=== PATIENT | female | born 1975 | race Caucasian/White ===

== ENCOUNTER 2017-02-12 16:17 | Inpatient (IN) | payer MEDICAID ==
[~2017-02-12] VITALS: Ht 157.5 cm; Wt 88.9 kg
[~2017-02-12 16:17] MED LIST: PREN1TAB49 PO
[2017-02-12 16:43] LABS: URINE BLOOD (Dip) POC 2+ (NEGATIVE)
[2017-02-12 16:58] LABS: ADD SCAN DIFF NO
[2017-02-12 17:00] LABS: BASOPHILS % 0.2 % (0.0-2.0); EOSINOPHILS # 0.2 10^3/ul (0.0-0.5); EOSINOPHILS % 1.4 % (0.0-7.0); HEMOGLOBIN 10.9 g/dl (12.0-16.0); LYMPHOCYTES # 2.3 10^3/ul (0.8-2.9); LYMPHOCYTES % 18.8 % (15.0-51.0); MEAN CORPUSCULAR HEMOGLOBIN 30.4 pg (29.0-33.0); MEAN CORPUSCULAR HGB CONC 34.1 g/dl (32.0-37.0); MEAN CORPUSCULAR VOLUME 89.4 fl (82.0-101.0); MEAN PLATELET VOLUME 10.6 fl (7.4-10.4); MONOCYTE # 1.4 10^3/ul (0.3-0.9); MONOCYTES % 11.2 % (0.0-11.0); NEUTROPHIL # 8.2 10^3/ul (1.6-7.5); NEUTROPHILS % 66.5 % (39.0-77.0); PLATELET COUNT 249 10^3/UL (140-415); RED BLOOD COUNT 3.58 10^6/ul (4.20-5.40); RED CELL DISTRIBUTION WIDTH 14.5 % (11.5-14.5); WHITE BLOOD COUNT 12.3 10^3/ul (4.8-10.8)
[2017-02-12 17:14] LABS: INR 0.88; PROTIME 11.9 Sec (12.2-14.2); PT RATIO 0.9
[2017-02-12 17:15] LABS: PARTIAL THROMBOPLASTIN TIME 28.9 Sec (25.0-35.0)
[2017-02-12 17:17] LABS: ALBUMIN 3.5 g/dl (3.3-4.9); ALBUMIN/GLOBULIN RATIO 1.4; BILIRUBIN,INDIRECT 0.1 mg/dl (0-1.1); BILIRUBIN,TOTAL 0.1 mg/dl (0.2-1.3); CALCIUM 9.6 mg/dl (8.4-10.2); CREATININE 0.83 mg/dl (0.44-1.00); POTASSIUM 4.8 mmol/L (3.5-5.1); URIC ACID 8.8 mg/dl (3.1-7.9)
--- NOTE | 2017-02-12 19:29 | RADRPT ---
PROCEDURE: US OB. CLINICAL INDICATION: Size and dates TECHNIQUE: Multiple sonographic images of the pelvis were obtained. The images were reviewed on a PACS workstation. COMPARISON: No prior studies are available for comparison. FINDINGS: There is a twin viable intrauterine gestation. BABY A Cardiac activity is present with 142 beats per minute. There is a vertex presentation. The placenta is fundal. Measurements were made in order to determine age. The results are as follows: BPD =7.4 cm HC =26.6 cm AC =23.9 cm FL =5.4 cm The EFW = 1239 g. BABY B Cardiac activity is present with 148 beats per minute. There is a vertex presentation. The placenta is anterior. Measurements were made in order to determine age. The results are as follows: BPD =7.3 cm HC =26.1 cm AC =24.8 cm FL =5.6 cm The EFW = 1328 g. Estimated gestational age of approximately 28 weeks and 6 days and 29 weeks and 0 days. RPTAT: AA IMPRESSION: Twin viable intrauterine gestation of approximately 28 weeks and 6 days and 29 weeks and 0 days. .El Matthews MD, MD Date Time Electronically viewed and signed by .El Matthews MD, MD on 02/12/2017 19:29 .S/
--- NOTE | 2017-02-12 19:31 | RADRPT ---
PROCEDURE: US OB biophysical profile. CLINICAL INDICATION: decreased movements TECHNIQUE: Multiple sonographic images of the pelvis were obtained. The images were reviewed on a PACS workstation. COMPARISON: No prior studies are available for comparison. FINDINGS: There is a twin viable intrauterine gestation. There is a normal amount of amniotic fluid with an AKOSUA = 10.6 cm. Twin A Cardiac activity is present with 146 beats per minute. There is a vertex presentation. The placenta is fundal. Biophysical profile: movement 2/2 tone 2/2. breathing 2/2 AKOSUA 2/2 Total 8/8 Twin B Cardiac activity is present with 156 beats per minute. There is a vertex presentation. The placenta is anterior. Biophysical profile: movement 2/2 tone 2/2. breathing 2/2 AKOSUA 2/2 Total 8/8 RPTAT: AA . IMPRESSION: Normal biophysical profile for twin gestation . . .El Matthews MD, MD Date Time Electronically viewed and signed by .El Matthews MD, on 02/12/2017 19:31 .S/
[2017-02-12] MEDS: BETAMET NA PHOS/AC(6 MG/ML) 5ML INJ IM SCH (20:08)
--- NOTE | 2017-02-12 20:48 | HP ---
DATE OF ADMISSION: 02/12/2017 HISTORY OF PRESENT ILLNESS: A 41-year-old female, 3, para 0-1-1-1, estimated date of delivery 05/02/2017, 28+ weeks' gestation was admitted due to elevated blood pressure. PAST SURGICAL HISTORY: Unremarkable. ALLERGIES: NO KNOWN ALLERGIES. FAMILY HISTORY: Noncontributory. COURSE: Significant for twin . PHYSICAL EXAMINATION: VITAL SIGNS: The patient is afebrile. Vital signs stable. HEAD, NECK AND CHEST: Within normal limits. ABDOMEN: Soft, nontender and gravid. EXTREMITIES: Reveals edema. NEUROLOGIC: Within normal limits. HOSPITAL COURSE: Intrauterine at 28+ weeks, rule out preeclampsia. PLAN: Admit, -induced hypertension panel and 24-hour urine collection , intramuscular betamethasone for lung maturity. Perinatology and neonatology consultations. Dictated By: ROZ GIRON/GRZEGORZ Conf#: [id number] DID#: [id number] TREVOR
[2017-02-12] MEDS: AMOXICILLIN 500 MG CAP PO SCH (22:58)
[2017-02-13] MEDS: LACTATED RINGER'S 1,000 ML IV SCH ×5 (01:49→14:40)
[2017-02-13 03:21] VITALS: Ht 157.5 cm; Wt 88.9 kg
[2017-02-13 06:20] LABS: ADD SCAN DIFF NO
[2017-02-13 06:40] LABS: BASOPHILS % 0.1 % (0.0-2.0); EOSINOPHILS % 0.1 % (0.0-7.0); HEMATOCRIT 33.5 % (37.0-47.0); HEMOGLOBIN 10.9 g/dl (12.0-16.0); LYMPHOCYTES # 1.7 10^3/ul (0.8-2.9); LYMPHOCYTES % 12.1 % (15.0-51.0); MEAN CORPUSCULAR HEMOGLOBIN 29.5 pg (29.0-33.0); MEAN CORPUSCULAR HGB CONC 32.5 g/dl (32.0-37.0); MEAN CORPUSCULAR VOLUME 90.8 fl (82.0-101.0); MONOCYTE # 0.4 10^3/ul (0.3-0.9); MONOCYTES % 3.1 % (0.0-11.0); NEUTROPHIL # 11.2 10^3/ul (1.6-7.5); NEUTROPHILS % 81.8 % (39.0-77.0); PLATELET COUNT 225 10^3/UL (140-415); RED BLOOD COUNT 3.69 10^6/ul (4.20-5.40); RED CELL DISTRIBUTION WIDTH 14.5 % (11.5-14.5); WHITE BLOOD COUNT 13.7 10^3/ul (4.8-10.8)
[2017-02-13 07:10] LABS: ALBUMIN 3.1 g/dl (3.3-4.9); ALBUMIN/GLOBULIN RATIO 1.14; BILIRUBIN,INDIRECT 0.2 mg/dl (0-1.1); BILIRUBIN,TOTAL 0.2 mg/dl (0.2-1.3); CALCIUM 8.8 mg/dl (8.4-10.2); CREATININE 0.67 mg/dl (0.44-1.00); POTASSIUM 4.9 mmol/L (3.5-5.1); TOTAL PROTEIN 5.8 g/dl (6.1-8.1); URIC ACID 8.6 mg/dl (3.1-7.9)
[2017-02-13] MEDS: AMOXICILLIN 500 MG CAP PO SCH ×3 (07:14→22:27)
[2017-02-13] MEDS: MULTIVIT/MIN/FOLATE/IRON/PREN TAB PO SCH (09:36)
[2017-02-13] MEDS: DOCUSATE SODIUM 100 MG CAP PO SCH (09:36)
[2017-02-13] MEDS: FERROUS SULFATE (EC) 325 MG TAB PO SCH (09:36)
--- NOTE | 2017-02-13 13:58 | QN ---
Documentation Comment No complaint Afebrile BP 130'-150's/70's-90's Strip Appropriate for GA Await Perinatology consult. ROZ HALL MD Feb 13, 2017 13:58
[2017-02-13 16:35] LABS: COLLECTION PERIOD 24 hrs
--- NOTE | 2017-02-13 17:37 | PERINOTE ---
Date/Time of Note Date/Time of Note DATE: 02/13/17 TIME: 17:32 Assessment/Recommendations Other Assessments labor Hypertension, likely preeclampsia. 24 hour urine collection result is pending Twin Recommendations: Would continue as you are doing with bedrest and betamethasone. If the patient has persistent elevated BPs, could consider labetalol to reduce the risk of severe BPs. If the patient meets criteria for severe preeclampsia due to blood pressure, would plan delivery at 34 weeks, earlier for other severe features, or maternal distress. OB Subjective Free Text/Dictaton Patient referred from Ob office for suspected labor. On admission, found to have hypertension with one severe-range BP, likely preeclampsia. Patient with known trim gestation. No history of preeclampsia with her prior or of chronic hypertension when not . Prior infant delivered at 36 weeks GA after premature rupture of membranes HD# 2 IUP @ 29 weeks Complaints/Overnight events None Current Medications Current Medications Lactated Ringer's (Lr) 1,000 ml @ 125 mls/hr Q8H IV Last administered on 14:40; Admin Dose 125 MLS/HR; Start 02/12/17 at 17:49 Betamethasone Acet/Betameth SodPhos (Celestone Soluspan) 12 mg Q24H IM Last administered on 02/12/17 20:08; Admin Dose 12 MG; Start 02/12/17 at 18:00; Stop 02/13/17 at 18:01 Prenat Multivit/ [place]/Iron/Folic Ac ( S) 1 tab DAILY PO Last administered on 02/13/17 09:36; Admin Dose 1 TAB; Start 02/13/17 at 09:00 Ferrous Sulfate (Ferrous Sulfate (Ec)) 325 mg DAILY PO Last administered on 09:36; Admin Dose 325 MG; Start 02/13/17 at 09:00 Docusate Sodium (Colace) 100 mg DAILY PO Last administered on 02/13/17 09:36; Admin Dose 100 MG; Start 02/13/17 at 09:00 Amoxicillin (Amoxicillin) 500 mg Q8 PO Last administered on 02/13/17 14:15; Admin Dose 500 MG; Start 02/12/17 at 22:00 Past Medical History Medical History: no pertinent history Surgical History: no surgical history SPAGHETTI PRESS HELPER History: no pertinent SPAGHETTI PRESS HELPER history Para: 1 : 3 LMP (Females 10-50): Family History Significant Family History: no pertinent family hx OB Admission Exam Physical Exam Vitals: Current BP 137/84 Max BP since admission: 164/101 Heart: Rhythm Normal Lungs: Clear Abdomen: WNL Extremities: Normal Reflexes: Normal Heart Rate: 130's Accelerations: Accelerations Present Decelerations: Variable Decelerations Varibility: Marked Contractions on Admission: None Last 72 hours Lab Results CBC & BMP 02/12/17 16:30 02/13/17 06:05 Liver Function Test 02/12/17 16:30 02/13/17 06:05 Alanine Aminotransferase (ALT/SGPT) 49 47 Albumin 3.5 3.1 L Alkaline Phosphatase 117 104 Aspartate Amino Transf (AST/SGOT) 32 32 Direct Bilirubin 0.00 0.00 Total Protein 6.0 L 5.8 L ELKE WILLS MD Feb 13, 2017 17:37
[2017-02-13 17:40] LABS: COLLECTION PERIOD 24 hrs; SCRET 0.67 mg/dl (0.44-1.00)
[2017-02-13] MEDS: BETAMET NA PHOS/AC(6 MG/ML) 5ML INJ IM SCH (20:31)
[2017-02-14] MEDS: AMOXICILLIN 500 MG CAP PO SCH ×3 (05:48→21:56)
[2017-02-14] MEDS ORDERED: LABETALOL 200 MG TAB PO SCH (08:00)
[2017-02-14] MEDS: FERROUS SULFATE (EC) 325 MG TAB PO SCH (08:25)
[2017-02-14] MEDS: LABETALOL 100 MG TAB PO SCH ×3 (08:25→21:56)
[2017-02-14] MEDS: DOCUSATE SODIUM 100 MG CAP PO SCH (08:25)
[2017-02-14] MEDS: MULTIVIT/MIN/FOLATE/IRON/PREN TAB PO SCH (08:25)
--- NOTE | 2017-02-14 15:11 | QN ---
Documentation Comment No complaint Afebrile BP in 150's earlier, no w improved on labetalol Strip Appropriate for GA both twins 24 hour urine total protein >600 Continue with in hospital care. ROZ HALL MD Feb 14, 2017 15:11
[2017-02-15] MEDS: AMOXICILLIN 500 MG CAP PO SCH ×3 (05:32→22:34)
[2017-02-15] MEDS: LABETALOL 100 MG TAB PO SCH ×3 (05:33→22:35)
[2017-02-15] MEDS: FERROUS SULFATE (EC) 325 MG TAB PO SCH (08:45)
[2017-02-15] MEDS: DOCUSATE SODIUM 100 MG CAP PO SCH (08:45)
[2017-02-15] MEDS: MULTIVIT/MIN/FOLATE/IRON/PREN TAB PO SCH (08:45)
--- NOTE | 2017-02-15 16:56 | QN ---
Documentation Comment No complaint Afebrile VSS Strip Appropriate for GA Continue with present care. ROZ HALL MD Feb 15, 2017 16:56
[2017-02-16] MEDS: AMOXICILLIN 500 MG CAP PO SCH ×3 (06:14→22:03)
[2017-02-16] MEDS: LABETALOL 100 MG TAB PO SCH ×3 (06:19→22:04)
[2017-02-16 07:14] LABS: ADD SCAN DIFF NO
[2017-02-16 07:17] LABS: ABNORMAL IP MESSAGE 1; BASOPHILS % 0.3 % (0.0-2.0); EOSINOPHILS % 0.3 % (0.0-7.0); HEMOGLOBIN 10.2 g/dl (12.0-16.0); LYMPHOCYTES # 1.9 10^3/ul (0.8-2.9); LYMPHOCYTES % 16.1 % (15.0-51.0); MEAN CORPUSCULAR HEMOGLOBIN 29.6 pg (29.0-33.0); MEAN CORPUSCULAR HGB CONC 31.9 g/dl (32.0-37.0); MEAN CORPUSCULAR VOLUME 92.8 fl (82.0-101.0); MEAN PLATELET VOLUME 11.1 fl (7.4-10.4); MONOCYTE # 1.4 10^3/ul (0.3-0.9); MONOCYTES % 11.5 % (0.0-11.0); NEUTROPHIL # 7.8 10^3/ul (1.6-7.5); NEUTROPHILS % 66.3 % (39.0-77.0); NUCLEATED RED BLOOD CELLS% 0.3 /100WBC (0.0-0.0); PLATELET COUNT 235 10^3/UL (140-415); RED BLOOD COUNT 3.45 10^6/ul (4.20-5.40); RED CELL DISTRIBUTION WIDTH 14.9 % (11.5-14.5); WHITE BLOOD COUNT 11.7 10^3/ul (4.8-10.8)
[2017-02-16 07:58] LABS: ALBUMIN 2.9 g/dl (3.3-4.9); ALBUMIN/GLOBULIN RATIO 1.38; BILIRUBIN,INDIRECT 0.1 mg/dl (0-1.1); BILIRUBIN,TOTAL 0.1 mg/dl (0.2-1.3); CALCIUM 8.3 mg/dl (8.4-10.2); CREATININE 0.77 mg/dl (0.44-1.00); POTASSIUM 4.5 mmol/L (3.5-5.1); URIC ACID 8.7 mg/dl (3.1-7.9)
[2017-02-16] MEDS: DOCUSATE SODIUM 100 MG CAP PO SCH (08:51)
[2017-02-16] MEDS: MULTIVIT/MIN/FOLATE/IRON/PREN TAB PO SCH (08:51)
[2017-02-16] MEDS: FERROUS SULFATE (EC) 325 MG TAB PO SCH (08:51)
[2017-02-16] MEDS ORDERED: LABETALOL 100 MG TAB PO SCH (09:05)
--- NOTE | 2017-02-16 09:24 | QN ---
Documentation Comment No complaint Afebrile BP has been increasing to 180's Strip Appropriate for GA Labs normal Case discussed with Dr Reyes who recommends to increase the dose of labetalol. ROZ HALL MD Feb 16, 2017 09:24
[2017-02-16] MEDS ORDERED: LABETALOL 200 MG TAB PO ONE (09:30)
--- NOTE | 2017-02-16 13:17 | PERINOTE ---
Date/Time of Note Date/Time of Note DATE: 02/16/17 TIME: 13:10 Assessment/Recommendations Other Assessments Twin Preeclampsia, severe by BP criteria. BP not well controlled on present dose of labetalol Recommendations: Would increase labetalol as you are doing Given hyperreflexia, would consider a course of magnesium sulfate If the patient's BP remains uncontrolled (with severe-range BPs) on increased labetalol, would favor delivery Would repeat AST/ALT,platelet count and fibrinogen daily until delivery unless the patient stabilizes. OB Subjective Free Text/Dictaton The patient's blood pressure has been elevating, despite being on labetalol 200mg BID HD# 5 IUP @ 29W2D Complaints/Overnight events None. Denies visual symptoms, headache or chest or abdominal pain. Current Medications Current Medications Prenat Multivit/ Cavalier/Iron/Folic Ac ( S) 1 tab DAILY PO Last administered on 02/16/17 08:51; Admin Dose 1 TAB; Start 02/13/17 at 09:00 Ferrous Sulfate (Ferrous Sulfate (Ec)) 325 mg DAILY PO Last administered on 08:51; Admin Dose 325 MG; Start 02/13/17 at 09:00 Docusate Sodium (Colace) 100 mg DAILY PO Last administered on 02/16/17 08:51; Admin Dose 100 MG; Start 02/13/17 at 09:00 Amoxicillin (Amoxicillin) 500 mg Q8 PO Last administered on 02/16/17 06:14; Admin Dose 500 MG; Start 02/12/17 at 22:00 Labetalol HCl (Normodyne) 200 mg Q8 PO Last administered on 02/16/17 06:19; Admin Dose 200 MG; Start 02/14/17 at 08:00 OB Admission Exam Physical Exam Vitals: BP now: 164/99. Max BP last 24 hrs 178/101, 183/96 Extremities: Normal Reflexes: Hyperreflexia Present Last 72 hours Lab Results CBC & BMP 02/16/17 06:00 Liver Function Test 02/16/17 06:00 Alanine Aminotransferase (ALT/SGPT) 51 Albumin 2.9 L Alkaline Phosphatase 84 Aspartate Amino Transf (AST/SGOT) 31 Direct Bilirubin 0.00 Total Protein 5.0 L Copies To: CC: ROZ HALL MD, MARIE H MD Feb 16, 2017 13:17
[2017-02-16] MEDS ORDERED: LACTATED RINGER'S 1,000 ML IV SCH (14:43)
[2017-02-16] MEDS ORDERED: MAGNESIUM SULFATE 2 GM/50 ML 50 ML IVPB SCH ×2 (15:00)
[2017-02-16] MEDS ORDERED: MAGNESIUM SULFATE 4 GM/100 ML 100 ML IVPB ONE (15:00)
[2017-02-16] MEDS: LACTATED RINGER'S 1,000 ML IV SCH (15:40)
[2017-02-16 16:05] LABS: BILIRUBIN,INDIRECT 0.1 mg/dl (0-1.1); BILIRUBIN,TOTAL 0.1 mg/dl (0.2-1.3); CALCIUM 8.7 mg/dl (8.4-10.2); CREATININE 0.72 mg/dl (0.44-1.00); POTASSIUM 4.3 mmol/L (3.5-5.1); TOTAL PROTEIN 5.3 g/dl (6.1-8.1)
[2017-02-16] MEDS: MAGNESIUM SULFATE 20 GM/500 ML 500 ML IV SCH (16:23)
[2017-02-16 16:26] LABS: FIBRIN SPLIT PRODUCT <10 ug/ml (<10)
[2017-02-17] VITALS (8 sets, daily range): BP systolic 117–149; BP diastolic 81–102; PULSE 69–84; RESP 16–20
[2017-02-17] MEDS: MAGNESIUM SULFATE 20 GM/500 ML 500 ML IV SCH ×3 (02:17→21:51)
[2017-02-17] MEDS: LACTATED RINGER'S 1,000 ML IV SCH ×3 (02:18→22:04)
[2017-02-17 06:33] LABS: ADD SCAN DIFF NO
[2017-02-17 06:49] LABS: BASOPHILS % 0.2 % (0.0-2.0); EOSINOPHILS # 0.1 10^3/ul (0.0-0.5); EOSINOPHILS % 0.5 % (0.0-7.0); HEMATOCRIT 33.8 % (37.0-47.0); HEMOGLOBIN 11.1 g/dl (12.0-16.0); LYMPHOCYTES % 15.9 % (15.0-51.0); MEAN CORPUSCULAR HEMOGLOBIN 30.1 pg (29.0-33.0); MEAN CORPUSCULAR HGB CONC 32.8 g/dl (32.0-37.0); MEAN CORPUSCULAR VOLUME 91.6 fl (82.0-101.0); MEAN PLATELET VOLUME 10.9 fl (7.4-10.4); MONOCYTE # 1.2 10^3/ul (0.3-0.9); MONOCYTES % 9.5 % (0.0-11.0); NEUTROPHIL # 8.5 10^3/ul (1.6-7.5); NEUTROPHILS % 68.9 % (39.0-77.0); NUCLEATED RED BLOOD CELLS% 0.2 /100WBC (0.0-0.0); PLATELET COUNT 234 10^3/UL (140-415); RED BLOOD COUNT 3.69 10^6/ul (4.20-5.40); WHITE BLOOD COUNT 12.3 10^3/ul (4.8-10.8)
[2017-02-17 07:01] LABS: ALBUMIN/GLOBULIN RATIO 1.25; CALCIUM 8.4 mg/dl (8.4-10.2); CREATININE 0.7 mg/dl (0.44-1.00); POTASSIUM 4.3 mmol/L (3.5-5.1); TOTAL PROTEIN 5.4 g/dl (6.1-8.1); URIC ACID 8.4 mg/dl (3.1-7.9)
--- NOTE | 2017-02-17 09:27 | PERINOTE ---
Date/Time of Note Date/Time of Note DATE: 02/17/17 TIME: 09:24 OB Subjective Free Text/Dictaton Patient with twin gestation and elevated BP. This AM (about 6AM) she had BPs greater than 160 systolic despite increased dose of labetalol. Given the failure to control BP, I would favor delivery today for severe preeclampsia. Current Medications Current Medications Prenat Multivit/ Electroplating Worker/Iron/Folic Ac ( S) 1 tab DAILY PO Last administered on 02/16/17 08:51; Admin Dose 1 TAB; Start 02/13/17 at 09:00 Ferrous Sulfate (Ferrous Sulfate (Ec)) 325 mg DAILY PO Last administered on 08:51; Admin Dose 325 MG; Start 02/13/17 at 09:00 Docusate Sodium (Colace) 100 mg DAILY PO Last administered on 02/16/17 08:51; Admin Dose 100 MG; Start 02/13/17 at 09:00 Amoxicillin (Amoxicillin) 500 mg Q8 PO Last administered on 02/16/17 22:03; Admin Dose 500 MG; Start 02/12/17 at 22:00 Labetalol HCl 400 mg 400 mg Q8 PO Last administered on 02/16/17 22:04; Admin Dose 400 MG; Start 02/16/17 at 14:00 Lactated Ringer's 1,000 ml @ 75 mls/hr [id number] IV Last administered on 02:18; Admin Dose 75 MLS/HR; Start 02/16/17 at 14:30 Magnesium Sulfate (Magnesium Sulfate 20 Gm/500 ml) 500 ml @ 50 mls/hr Q10H IV Last administered on 02/17/17 02:17; Admin Dose 50 MLS/HR; Start 02/16/17 at 14 :33 Labetalol HCl (Labetalol) 20 mg Q20M PRN IV SBP>160; Start 02/16/17 at 19:30 OB Admission Exam Last 72 hours Lab Results CBC & BMP 02/16/17 06:00 02/16/17 15:25 02/17/17 06:00 Liver Function Test 02/16/17 06:00 02/16/17 15:25 02/17/17 06:00 Alanine Aminotransferase (ALT/SGPT) 51 46 49 Albumin 2.9 L 3.0 L 3.0 L Alkaline Phosphatase 84 99 106 Aspartate Amino Transf (AST/SGOT) 31 30 36 Direct Bilirubin 0.00 0.00 0.00 Total Protein 5.0 L 5.3 L 5.4 L Magnesium Level Test 02/16/17 23:05 Magnesium Level 5.0 H Copies To: CC: ROZ HALL MD, MARIE H MD Feb 17, 2017 09:27
[2017-02-17] MEDS: LABETALOL HCL 20MG INJ IV PRN ×2 (10:10→10:54)
[2017-02-17] MEDS ORDERED: CEFAZOLIN 2 GM/50 ML (PMX) 50 ML IVPB ONE (10:47)
[2017-02-17] MEDS ORDERED: CARBOPROST 250 MCG INJ IM PRN ×2 (11:00→14:30)
[2017-02-17] MEDS ORDERED: MISOPROSTOL 200 MCG TAB PR PRN ×2 (11:00→14:30)
[2017-02-17] MEDS ORDERED: METHYLERGONOVINE 0.2 MG INJ IM PRN (11:00)
[2017-02-17] MEDS ORDERED: CEFAZOLIN 2 GM/50 ML (PMX) 50 ML IVPB SCH (11:00)
[2017-02-17] MEDS ORDERED: OXYTOCIN 30 UNITS/LR 500 ML IV PRN ×2 (11:00→14:30)
[2017-02-17] MEDS ORDERED: OXYTOCIN 30 UNITS/LR 500 ML IV SCH (11:00)
[2017-02-17] MEDS ORDERED: ONDANSETRON 4 MG INJ IV STA (11:10)
[2017-02-17] MEDS ORDERED: KETOROLAC 30 MG INJ ONE (11:22)
[2017-02-17] MEDS ORDERED: DEXAMETHASONE 4 MG/ML 1 ML INJ ONE (11:22)
[2017-02-17] MEDS ORDERED: morphine SULFATE/PF (10 MG/10 ML) INJ ONE (11:22)
[2017-02-17] MEDS ORDERED: PHENYLephrine (100 MCG/ML) 5ML SYG ONE (11:22)
[2017-02-17] MEDS ORDERED: METOCLOPRAMIDE 10 MG INJ ONE (11:22)
[2017-02-17] MEDS ORDERED: OXYTOCIN 10 UNIT INJ ONE (11:22)
[2017-02-17] MEDS ORDERED: CITRIC ACID/SODIUM CITRATE 15 ML CUP PO ONE (11:30)
--- NOTE | 2017-02-17 11:32 | QN ---
Documentation Comment Perinatology consult noted and appreciated. Patient's BP is in 170's requiring repeated doses of IV labetalol to lower the BP. Per recommendation of Perinatology will prepare for delivery by primary . Risks, benefits and alternatives were explained to the patient. Patient stated she understood and gave informed consent for the procedure. ROZ HALL MD Feb 17, 2017 11:32
--- NOTE | 2017-02-17 12:46 | CONS ---
DATE OF ADMISSION: 02/12/2017 DATE OF CONSULTATION: 02/17/2017 TYPE OF CONSULTATION: Neonatology Consult requested by Dr. Hall with plans for section of twin at 29-3/7 weeks f or -induced hypertension. The patient was admitted 4 days ago with high blood pressure managed subsequently with labetalol. S he is not ruptured. There is no fever. There are no contractions. Blood type is O positive, RPR negative, hepatitis B negative, HIV negative, group B strep unknown. She is on amoxicillin also for a urinary tract infection. Gestation is 29-3/7 weeks. The last estimated weights by ultrasound were 1239 and 1328 grams, they are female. I spoke to the parents with the help of a reeling and tubing machine operator. I explained to about the risk for neurodevelo pmental problems, problems related to prematurity such as breathing problems, feeding intolerance, n ecrotizing enterocolitis, apnea, infection, hyperbilirubinemia, intracranial hemorrhage and many oth er problems. I discussed possibly needed procedures such as umbilical arterial and venous catheteri zation, peripheral arterial and percutaneous inserted central catheters, spinal tap and possible blo od transfusions. I discussed also length of stay, usual problems and approaches, and answered all their questions. Thank you for allowing me to assist in the care of this family. Dictated By: HAILE MEJIA/NTS Conf#: [id number] DID#: [id number] CC: DENNY CONDE MD; ROZ HALL MD;*EndCC*
[2017-02-17] MEDS ORDERED: NALBUPHINE HCL (10 MG/1 ML) INJ IV PRN (13:30)
[2017-02-17] MEDS ORDERED: morphine 4 MG/ML VIAL IV PRN (13:30)
[2017-02-17] MEDS ORDERED: KETOROLAC 30 MG INJ IV PRN (13:30)
[2017-02-17] MEDS ORDERED: HYDROCODONE/APAP (5/325) TAB PO PRN (13:30)
[2017-02-17] MEDS ORDERED: morphine 2 MG INJ IV PRN (13:30)
[2017-02-17] MEDS ORDERED: DIPHENHYDRAMINE 50 MG INJ IV PRN (13:30)
[2017-02-17] MEDS ORDERED: ACETAMINOPHEN 500 MG TAB PO PRN (13:30)
[2017-02-17] MEDS ORDERED: NALOXONE (0.4 MG/ML) INJ IV PRN (13:30)
[2017-02-17] MEDS ORDERED: HYDROmorphONE 1 MG/ML SYG IV PRN ×2 (13:30)
[2017-02-17] MEDS ORDERED: ONDANSETRON 4 MG INJ IV PRN (13:30)
[2017-02-17 13:33] LABS: CBV Base Excess -10.6 mmol/L; Cord Blood Venous AADO2 78.9 mmHg; Cord Blood Venous pO2 25.3 mmHG (15.0-45.0); MODE ROOM AIR; Sample Type CBV
[2017-02-17] MEDS: OXYTOCIN 30 UNITS/LR 500 ML IV SCH ×2 (14:04→18:04)
--- NOTE | 2017-02-17 14:15 | OPR ---
DATE OF OPERATION: 02/17/2017 PREOPERATIVE DIAGNOSES: at 29 weeks and 3 days with twins and severe preeclampsia. POSTOPERATIVE DIAGNOSES: at 29 weeks and 3 days with twins and severe preeclampsia. OPERATION PERFORMED: Primary low transverse section. SURGEON: Roz rFias MD CASING TIER: Santa Brown MD ANESTHESIA: Spinal. ANESTHESIOLOGIST: Dr. Macdonald PROCEDURE: The patient was taken to the operating room and placed on the operating table. After successful spinal anesthesia was given, the patient was placed in supine position. The area was prepared and draped in the usual sterile fashion. Spinal anesthesia was tested and was satisfactory. Using a scalpel, Pfannenstiel incision was made about 2 fingerbreadths above the symphysis pubis. The incision was carried to the fascia. The fascia was incised and extended bilaterally with Nina scissors. Two Pallavi's were used to separate the fascia from the muscle. The muscle was dissected down to peritoneum. The peritoneum was bluntly entered. Using a scalpel, a small transverse incision was made in the lower segment of the uterus, upon entering the uterine cavity. Nina scissors were inserted to extend the incision bilaterally, curved up. Twin A baby girl was delivered from cephalic presentation. After suctioning clear of amniotic fluid, the baby was handed off to the mechanics handyman in attendance. Apgars were 7 and 9. Twin B baby girl was delivered from cephalic presentation. After suctioning clear of amniotic fluid, the baby was handed off to the mechanics handyman in attendance. Apgars were 8 and 9. The placenta was delivered without difficulty. Uterus was closed with #1 Monocryl continuous locked. After assuring hemostasis, both ovaries and tubes were inspected, all looked normal. The peritoneal cavity was irrigated with warm saline. The peritoneum was closed with 2-0 Vicryl continuous. The fascia was closed with #1 Vicryl continuous in 2 segments. Subcutaneous tissue was reapproximated with 2-0 plain. The skin was closed with aicha. ESTIMATED BLOOD LOSS: 800 mL. COMPLICATIONS: None. COUNTS: All counts were correct. Dictated By: ROZ FRIAS MD GD/NTS Conf#: [id number] DID#: [id number] CC: SANTA BROWN MD;*EndCC* MTDD
[2017-02-17] MEDS: LABETALOL 200 MG TAB PO SCH ×2 (14:30→20:47)
[2017-02-17] MEDS ORDERED: LANOLIN 7 GM TUBE TOP PRN (14:30)
[2017-02-17] MEDS ORDERED: OXYCODONE/ACETAMINOPHEN (5/325) TAB PO PRN ×2 (14:30)
[2017-02-17] MEDS: SENNA/DOCUSATE NA (8.6MG/50MG) TAB PO SCH (20:46)
[2017-02-18] VITALS (15 sets, daily range): BP systolic 97–132; BP diastolic 62–88; PULSE 69–84; RESP 16–18
[2017-02-18] MEDS: LACTATED RINGER'S 1,000 ML IV SCH ×3 (00:42→14:04)
--- NOTE | 2017-02-18 05:17 | OPPN ---
Date/Time of Note Date/Time of Note DATE: 02/18/17 TIME: 05:17 Post-Anesthesia Notes Post-Anesthesia Note Last documented vital signs Vital Signs Date Time Temp Pulse Resp B/P Pulse Ox O2 Delivery O2 Flow Rate FiO2 02/18/17 03:30 73 18 102/71 Room Air 02/18/17 03:04 97 21 02/18/17 00:30 98.3 Activity: WNL Respiratory function: WNL Cardiovascular function: WNL Mental status: Baseline Pain reasonably controlled: Yes Hydration appropriate: Yes Nausea/Vomiting absent: Yes ALEJANDRO JHAVERI MD Feb 18, 2017 05:17
[2017-02-18] MEDS: LABETALOL 200 MG TAB PO SCH ×3 (06:31→22:28)
[2017-02-18 07:41] LABS: ADD SCAN DIFF NO
[2017-02-18 07:54] LABS: BASOPHILS % 0.1 % (0.0-2.0); EOSINOPHILS % 0.1 % (0.0-7.0); HEMATOCRIT 21.4 % (37.0-47.0); LYMPHOCYTES # 1.9 10^3/ul (0.8-2.9); MEAN CORPUSCULAR HGB CONC 32.7 g/dl (32.0-37.0); MEAN CORPUSCULAR VOLUME 91.8 fl (82.0-101.0); MEAN PLATELET VOLUME 10.8 fl (7.4-10.4); MONOCYTES % 7.2 % (0.0-11.0); NEUTROPHIL # 10.6 10^3/ul (1.6-7.5); NEUTROPHILS % 77.3 % (39.0-77.0); PLATELET COUNT 198 10^3/UL (140-415); RED BLOOD COUNT 2.33 10^6/ul (4.20-5.40); RED CELL DISTRIBUTION WIDTH 15.2 % (11.5-14.5); WHITE BLOOD COUNT 13.7 10^3/ul (4.8-10.8)
[2017-02-18] MEDS: SENNA/DOCUSATE NA (8.6MG/50MG) TAB PO SCH ×2 (09:22→20:55)
[2017-02-18] MEDS: MAGNESIUM SULFATE 20 GM/500 ML 500 ML IV SCH (09:26)
--- NOTE | 2017-02-18 20:53 | QN ---
Documentation Comment No complaint Afebrile VSS Abdomen soft ND POD #1 Stable D/C magnesium sulfate Ambulate Advance diet. ROZ HALL MD Feb 18, 2017 20:53
[2017-02-18] MEDS: IBUPROFEN 800 MG TAB PO SCH (20:55)
[2017-02-19] VITALS: BP 104/58; PULSE 80; RESP 18
[2017-02-19 04:30] VITALS: BP 124/74; PULSE 80; RESP 18
[2017-02-19] MEDS: LABETALOL 200 MG TAB PO SCH ×3 (06:14→21:35)
[2017-02-19 07:50] VITALS: BP 121/64; PULSE 85; RESP 18
[2017-02-19] MEDS: SENNA/DOCUSATE NA (8.6MG/50MG) TAB PO SCH ×2 (08:35→21:32)
[2017-02-19] MEDS: IBUPROFEN 800 MG TAB PO SCH ×3 (08:35→21:31)
[2017-02-19 15:22] VITALS: BP 125/77; PULSE 93; RESP 18
--- NOTE | 2017-02-19 18:53 | QN ---
Documentation Comment No complaint Afebrile VSS Abdomen soft POD #2 Stable Continue present care. ROZ HALL MD Feb 19, 2017 18:53
[2017-02-19 19:50] VITALS: BP 122/70; PULSE 97; RESP 19
[2017-02-20 00:30] VITALS: BP 118/66; PULSE 98; RESP 19
[2017-02-20 04:00] VITALS: BP 117/73; PULSE 92; RESP 19
[2017-02-20] MEDS: LABETALOL 200 MG TAB PO SCH ×3 (06:15→21:37)
[2017-02-20 08:15] VITALS: BP 123/67; PULSE 88; RESP 18
[2017-02-20] MEDS: IBUPROFEN 800 MG TAB PO SCH ×3 (08:35→21:36)
[2017-02-20] MEDS: SENNA/DOCUSATE NA (8.6MG/50MG) TAB PO SCH ×2 (08:35→21:36)
[2017-02-20] MEDS ORDERED: DIPHTH/TET/ACEL PERTUSS (ADULT) 0.5 ML VIAL IM* ONE (09:00)
[2017-02-20 14:00] VITALS: BP 138/74; PULSE 101; RESP 18
[2017-02-20 16:00] VITALS: BP 148/76; PULSE 84; RESP 18
[2017-02-20 20:00] VITALS: BP 148/70; PULSE 100; RESP 19
--- NOTE | 2017-02-20 21:31 | QN ---
Documentation Comment No complaint Afebrile VSS Abdomen soft Stable Continue with present care. ROZ HLAL MD Feb 20, 2017 21:31
[2017-02-21 04:00] VITALS: BP 132/82; PULSE 86; RESP 19
[2017-02-21] MEDS: LABETALOL 200 MG TAB PO SCH ×2 (06:01→14:09)
[2017-02-21 08:00] VITALS: BP 143/89; PULSE 95; RESP 18
[2017-02-21] MEDS: SENNA/DOCUSATE NA (8.6MG/50MG) TAB PO SCH (09:00)
[2017-02-21] MEDS: IBUPROFEN 800 MG TAB PO SCH ×2 (09:09→14:13)
[2017-02-21 12:19] VITALS: BP 140/80; PULSE 89; RESP 19
[2017-02-21 14:00] VITALS: BP 138/86; PULSE 94; RESP 19
--- NOTE | 2017-02-21 15:54 | DS ---
DATE OF ADMISSION: 02/12/2017 DATE OF DISCHARGE: 02/21/2017 ADMITTING DIAGNOSIS: at 28+ weeks, rule out preeclampsia. HISTORY: A 41-year-old female, 3, para 0-1-1-1 at time of admission, para 0-2-1-3 at the ti me of discharge, at 28+ weeks gestation was admitted due to elevated blood pressures. The patient h ad workup for preeclampsia with 24-hour urine collection and -induced hypertension panel. Perinatology consultation was obtained. Recommendation of perinatologist was to observe the patient in the hospital. During the hospital course, the patient was started on labetalol due to increasin g blood pressure. On 02/16/2017, the patient was evaluated by perinatologist, and recommendation of perinatologist was to start the patient on intravenous magnesium sulfate for seizure prophylaxis, s danny patient's reflexes were noted to be increasing and there was concern for possible eclamptic sei zure. The patient' blood pressure also continued to increase despite increasing the dose of antihyp ertensive medication. On 02/17/2017, recommendation of perinatologist was to deliver the patient. On 02/18/2016, after obtaining informed consent, the patient underwent a primary low transverse cesa rean section. Patient's operation was uncomplicated. Postoperatively, the patient was continued on intravenous magnesium sulfate for about 24 hours, after which time the patient's blood pressure imp roved and the magnesium sulfate was discontinued. Patient was continued on labetalol postoperativel y and the patient's blood pressure was under control. The patient is discharged on postop day 4 aft er having had adequate bladder and bowel function. CONDITION ON DISCHARGE: Stable. DISCHARGE INSTRUCTIONS DIET: Regular. ACTIVITIES: Pelvic rest and no strenuous activities. MEDICATIONS: 1. Motrin as needed for pain. 2. Continue with vitamins, ferrous sulfate and folic acid. 3. Follow up in clinic in 5 days. FINAL DIAGNOSES: 1. , delivered by section. 2. Twin . 3. Preeclampsia with severe features. 4. Mother with twin liveborns. 5. Anemia associated with acute blood loss. Dictated By: ROZ GIRON/NTS Conf#: [id number] DID#: [id number]
== END 2017-02-21 16:20 | disposition home or self-care (01) | DRG 765 ==
LOC: OBT 16:17 → L-D 16:17 → OBT 17:10 → L-D 17:10 → OBG 17:10 → L-D 02-17 10:41 → PP1 02-17 16:58
PROVIDERS: ADMIT Obstetrics & Gynecology; ATTEND Obstetrics & Gynecology
PROC: 10D00Z1 Extraction of Products of Conception, Low, Open Approach (ICD-10-PCS; principal; 2017-02-17 13:45)
DX: O14.14 Severe pre-eclampsia complicating childbirth (principal); D62 Acute posthemorrhagic anemia; O30.003 Twin pregnancy, unspecified number of placenta and unspecified number of amniotic sacs, third trimester; Z37.2 Twins, both liveborn; O99.02 Anemia complicating childbirth; Z3A.28 28 weeks gestation of pregnancy
CPT/HCPCS: 36415; 76815; 76818; 80053; 80069; 80076; 81003; 82575; 82803; 83615; 83735; 84156; 84560; 85025; 85362; 85384; 85610; 85730; 86885; 86900; 86901; 87340; 88307; 90715; 94760; 99464; G0463; J0690; J0702; J1100; J1885; J2274; J2370; J2405; J2590; J2765; J3475; J7120